=== PATIENT | male | born 1960 | race Hispanic/Latino ===

== ENCOUNTER 2020-04-09 20:52 | Inpatient (IN) | payer BC ==
[~2020-04-09] VITALS: Ht 177.8 cm; Wt 102.1 kg
[2020-04-09 21:41] LABS: BASOPHILS # (AUTO) 0.1 (0.0-0.1); BASOPHILS % 0.7 % (0.0-1.0); EOSINOPHILS # (AUTO) 0.2 (0.0-0.4); EOSINOPHILS % 2.2 % (0.0-6.0); HEMATOCRIT 43.1 % (38.2-49.6); HEMOGLOBIN 14.4 g/dL (14.0-18.0); LYMPHOCYTES % 22.1 % (18.0-39.1); MEAN CORPUSCULAR HEMOGLOBIN 29.8 pg (28-32); MEAN CORPUSCULAR HGB CONC 33.4 g/dL (31-35); MEAN CORPUSCULAR VOLUME 89.2 fL (81-99); MONOCYTES # (AUTO) 0.8 (0.2-0.8); MONOCYTES % 8.5 % (4.4-11.3); NEUTROPHILS % 66.3 % (38.7-80.0); PLATELET COUNT 187 x10e3/uL (140-360); RED BLOOD COUNT 4.83 x10e6/uL (4.3-5.7); RED CELL DISTRIBUTION WIDTH 13.6 % (11.7-14.4)
[2020-04-09 21:57] LABS: ANION GAP 13.5 mmol/L (8-16); BLOOD UREA NITROGEN 26 mg/dL (7-26); BUN/CREATININE RATIO 21 (6-25); CALCIUM 8.8 mg/dL (8.4-10.2); CARBON DIOXIDE 22 mmol/L (22-29); CHLORIDE 109 mmol/L (98-107); CREATININE, SERUM 1.21 mg/dL (0.72-1.25); EST GLOMERULAR FILTRATION RATE > 60 ML/MIN (60-); GLUCOSE 109 mg/dL (74-118); POTASSIUM 3.5 mmol/L (3.5-5.1); SODIUM 141 mmol/L (136-145)
[2020-04-09 22:04] LABS: BILIRUBIN,URINE SMALL (NEGATIVE); CLARITY,URINE CLOUDY (CLEAR); COLOR,URINE YELLOW (YELLOW); KETONES,URINE NEGATIVE (NEGATIVE); LEUKOCYTE ESTERASE ,URINE NEGATIVE (NEGATIVE); NITRITE,URINE NEGATIVE (NEGATIVE); PROTEIN,URINE DIPSTICK 1+ (NEGATIVE); URINE UROBILINOGEN 0.2 mg/dL (0.2 - 1)
[2020-04-09 22:14] LABS: BACTERIA,URINE MODERATE /HPF; RBC,URINE >50 /HPF (0-5)
[2020-04-09] MEDS ORDERED: ONDANSETRON HCL INJ 2MG/ML 2ML 2 MG/ML VIAL IV PRN (22:30)
[2020-04-09] MEDS ORDERED: HYDROMORPHONE 1MG/1ML INJ IV PRN (22:30)
[2020-04-09] MEDS: CEFTRIAXONE SOD 1 GM/NS 50 ML 50 ML IV SCH (22:50)
[2020-04-09] MEDS: SODIUM CHLORIDE 0.9% 1000ML 1,000 ML IV SCH (22:50)
[2020-04-10] VITALS (9 sets, daily range): BP systolic 140–179; BP diastolic 81–96
[2020-04-10] MEDS ORDERED: TEMAZEPAM 7.5 MG CAP PO PRN (00:15)
[2020-04-10] MEDS ORDERED: ACETAMINOPHEN 325 MG TAB PO PRN (00:15)
[2020-04-10] MEDS ORDERED: POLYETHYLENE GLYCOL 3350 17 GM PACK PO PRN (00:15)
[2020-04-10] MEDS ORDERED: HYDRALAZINE HCL 20 MG/ML VIAL IV PRN (00:15)
[2020-04-10] MEDS ORDERED: POTASSIUM CHLORIDE 20 MEQ TAB CR PO STA (01:05)
[2020-04-10 06:20] LABS: BASOPHILS % 0.6 % (0.0-1.0); EOSINOPHILS # (AUTO) 0.2 (0.0-0.4); EOSINOPHILS % 2.9 % (0.0-6.0); HEMATOCRIT 42.5 % (38.2-49.6); HEMOGLOBIN 13.7 g/dL (14.0-18.0); LYMPHOCYTES # (AUTO) 1.9 (1.0-3.2); LYMPHOCYTES % 26.6 % (18.0-39.1); MEAN CORPUSCULAR HEMOGLOBIN 29.6 pg (28-32); MEAN CORPUSCULAR HGB CONC 32.2 g/dL (31-35); MEAN CORPUSCULAR VOLUME 91.8 fL (81-99); MONOCYTES # (AUTO) 0.8 (0.2-0.8); MONOCYTES % 10.8 % (4.4-11.3); NEUTROPHILS # (AUTO) 4.2 (2.1-6.9); PLATELET COUNT 156 x10e3/uL (140-360); RED BLOOD COUNT 4.63 x10e6/uL (4.3-5.7); RED CELL DISTRIBUTION WIDTH 13.8 % (11.7-14.4)
[2020-04-10 06:47] LABS: ANION GAP 12.7 mmol/L (8-16); BLOOD UREA NITROGEN 26 mg/dL (7-26); BUN/CREATININE RATIO 23 (6-25); CALCIUM 8.2 mg/dL (8.4-10.2); CARBON DIOXIDE 21 mmol/L (22-29); CHLORIDE 113 mmol/L (98-107); CREATININE, SERUM 1.12 mg/dL (0.72-1.25); EST GLOMERULAR FILTRATION RATE > 60 ML/MIN (60-); GLUCOSE 97 mg/dL (74-118); POTASSIUM 3.7 mmol/L (3.5-5.1); SODIUM 143 mmol/L (136-145)
[2020-04-10] MEDS: SODIUM CHLORIDE 0.9% 1000ML 1,000 ML IV SCH ×3 (06:51→22:30)
[2020-04-10 07:01] LABS: CHOL/HDL RATIO 4.1 (3.9-4.7); MAGNESIUM 2.1 MG/DL (1.3-2.1); PHOSPHORUS 4.5 MG/DL (2.3-4.7)
[2020-04-10 07:23] LABS: THYROID STIMULATING HORMONE 2.283 uIU/mL (0.350-4.940)
[2020-04-10] MEDS ORDERED: IOPAMIDOL 300MG/ML 50ML INFUS..BTL IV ONE (08:11)
[2020-04-10] MEDS ORDERED: B&O 60MG R/S 60 MG SUPP PR ONE (08:11)
[2020-04-10] MEDS ORDERED: DOCUSATE SODIUM 100 MG CAP PO SCH (09:00)
[2020-04-10] MEDS: FAMOTIDINE 20 MG/2 ML VIAL IV SCH ×2 (09:00→16:13)
[2020-04-10] MEDS ORDERED: PHENAZOPYRIDINE HCL 100 MG TAB PO PRN (09:15)
[2020-04-10] MEDS ORDERED: B&O 60MG R/S 60 MG SUPP PR PRN (09:15)
[2020-04-10] MEDS: DOCUSATE SODIUM 100 MG CAP PO SCH ×3 (12:29→21:47)
[2020-04-10] MEDS: ACETAMINOPHEN/CODEINE 300MG - 30MG TAB PO PRN ×2 (12:29→21:47)
[2020-04-10] MEDS ORDERED: MIDAZOLAM HCL 2 MG/2 ML VIAL ONE (15:07)
[2020-04-10] MEDS: OXYBUTYNIN CHLORIDE 5 MG TAB PO SCH ×2 (16:13→21:47)
[2020-04-10] MEDS: POLYETHYLENE GLYCOL 3350 17 GM PACK PO SCH (16:14)
[2020-04-10] MEDS ORDERED: DEXAMETHASONE SOD PHOS INJ 4 MG/ML VIAL ONE (17:46)
[2020-04-10] MEDS ORDERED: ONDANSETRON HCL INJ 2MG/ML 2ML 2 MG/ML VIAL ONE (17:46)
[2020-04-10] MEDS ORDERED: LIDOCAINE HCL 2% LOCAL INJ 5 ML SDV VIAL INJ ONE (17:46)
[2020-04-10] MEDS ORDERED: SEVOFLURANE INHAL SOLN 250 ML PEN BTL ONE (17:46)
[2020-04-10] MEDS ORDERED: PROPOFOL IV EMULSION 10 MG/ML 20 ML VIAL ONE (17:46)
[2020-04-10] MEDS ORDERED: SIMVASTATIN 20 MG TAB PO SCH (21:00)
[2020-04-10] MEDS: CEFTRIAXONE SOD 1 GM/NS 50 ML 50 ML IV SCH (21:47)
[2020-04-11] VITALS: BP_SYST 121; BP_SYST 126; BP_DIAS 61; BP_DIAS 78
[2020-04-11 04:00] VITALS: BP 142/82
[2020-04-11] MEDS: SODIUM CHLORIDE 0.9% 1000ML 1,000 ML IV SCH (05:30)
[2020-04-11 06:19] LABS: BASOPHILS % 0.3 % (0.0-1.0); EOSINOPHILS # (AUTO) 0.1 (0.0-0.4); EOSINOPHILS % 0.6 % (0.0-6.0); HEMATOCRIT 44.2 % (38.2-49.6); HEMOGLOBIN 14.5 g/dL (14.0-18.0); LYMPHOCYTES # (AUTO) 2.1 (1.0-3.2); MEAN CORPUSCULAR HEMOGLOBIN 30.1 pg (28-32); MEAN CORPUSCULAR HGB CONC 32.8 g/dL (31-35); MEAN CORPUSCULAR VOLUME 91.9 fL (81-99); MONOCYTES % 7.4 % (4.4-11.3); NEUTROPHILS # (AUTO) 9.7 (2.1-6.9); NEUTROPHILS % 75.2 % (38.7-80.0); PLATELET COUNT 183 x10e3/uL (140-360); RED BLOOD COUNT 4.81 x10e6/uL (4.3-5.7); RED CELL DISTRIBUTION WIDTH 13.7 % (11.7-14.4)
[2020-04-11 06:43] LABS: BLOOD UREA NITROGEN 19 mg/dL (7-26); BUN/CREATININE RATIO 18 (6-25); CALCIUM 8.8 mg/dL (8.4-10.2); CARBON DIOXIDE 23 mmol/L (22-29); CHLORIDE 110 mmol/L (98-107); CREATININE, SERUM 1.05 mg/dL (0.72-1.25); EST GLOMERULAR FILTRATION RATE > 60 ML/MIN (60-); GLUCOSE 94 mg/dL (74-118); SODIUM 143 mmol/L (136-145)
[2020-04-11 07:39] VITALS: BP 129/79
[2020-04-11] MEDS: DOCUSATE SODIUM 100 MG CAP PO SCH ×2 (09:15→15:23)
[2020-04-11] MEDS: POLYETHYLENE GLYCOL 3350 17 GM PACK PO SCH (09:15)
[2020-04-11] MEDS: FAMOTIDINE 20 MG/2 ML VIAL IV SCH (09:15)
[2020-04-11] MEDS: OXYBUTYNIN CHLORIDE 5 MG TAB PO SCH ×2 (09:15→15:23)
[2020-04-11 09:16] VITALS: BP 129/79
[2020-04-11 11:44] VITALS: BP 140/84
[2020-04-11 15:43] VITALS: BP 146/79
[2020-05-10] MEDS ORDERED: OXYBUTYNIN CHLOR5 M1 PO (13:59)
[2020-05-10] MEDS ORDERED: CEFUROXIME250 MG PO (14:00)
[2020-06-05] MEDS ORDERED: TYLENOL # 31 EA PO (20:30)
== END 2020-04-11 17:15 | disposition home or self-care (01) | DRG 661 ==
LOC: ER 20:58 → ERHOLD 22:38 → MED/SURG3 04-10 00:36
PROVIDERS: ADMIT Internal Medicine; ATTEND Internal Medicine
PROC: BT141ZZ Fluoroscopy of Kidneys, Ureters and Bladder using Low Osmolar Contrast (ICD-10-PCS; 2020-04-10)
PROC: 0T788DZ Dilation of Bilateral Ureters with Intraluminal Device, Via Natural or Artificial Opening Endoscopic (ICD-10-PCS; principal; 2020-04-10 10:00)
PROC: 0TC08ZZ Extirpation of Matter from Right Kidney, Via Natural or Artificial Opening Endoscopic (ICD-10-PCS; 2020-04-10 10:00)
DX: N13.2 Hydronephrosis with renal and ureteral calculous obstruction (principal); E83.51 Hypocalcemia; D64.9 Anemia, unspecified; N39.0 Urinary tract infection, site not specified; Z11.59 Encounter for screening for other viral diseases; E78.5 Hyperlipidemia, unspecified; N17.9 Acute kidney failure, unspecified; E66.9 Obesity, unspecified; Z68.31 Body mass index [BMI] 31.0-31.9, adult
CPT/HCPCS: 36415; 50590; 74018; 80048; 80061; 81001; 83036; 83735; 83970; 84100; 84443; 84550; 85025; 87086; 99284; C1758; C1769; C2617; J0696; J1100; J1170; J2001; J2250; J2405; J7030; U0002

== ENCOUNTER → 2020-05-15 | Day surgery (SDC) | payer BC, OTHER ==
--- NOTE | 2020-05-11 19:15 | Diagnostic Imaging Report ---
EXAM: Abdomen 2 radiographs INDICATION: ^[id number] ^[id number] ^PRE OP COMPARISON: 04/09/2020 FINDINGS: Bilateral nephroureteral stents in place. Nonobstructive bowel gas pattern. No signs of pneumoperitoneum. Redemonstration of 8 mm right renal calculus. There is also suspected left inferior pole calculus, measuring approximately 5 mm. There is a 5 mm calculus closely abutting distal left ureteral stent. Left pelvic fullness is again seen. No acute osseous abnormality. Degenerative changes of lumbar spine. Clear lung bases. IMPRESSION: 1. Nonobstructive bowel gas pattern. 2. Bilateral nephroureteral stents in place. 3. Unchanged 8 mm right renal inferior pole calculus. Suspected left inferior pole 5 mm calculus. 4. 5 mm calcification abutting the distal left ureteral stent, slightly advanced when compared to prior x-ray. Signed by: Dr. Thanh Yip MD on 05/11/2020 7:12 PM
[~2020-05-15] MED LIST: B&O 60MG R/S 60 MG SUPP PR ONE; CEFTRIAXONE SOD 1 GM/NS 50 ML 50 ML IV ONE; CEFUROXIME250 MG PO; DEXAMETHASONE SOD PHOS INJ 4 MG/ML VIAL ONE; FENTANYL CITRATE/PF 100MCG/2 ML INJ ONE; GENTAMICIN 80MG/NS 100 ML 200 ML IV ONE; IOPAMIDOL 300MG/ML 50ML INFUS..BTL IV ONE; LIDOCAINE HCL 2% JELLY 5 ML TUBE ONE; LIDOCAINE HCL 2% LOCAL INJ 5 ML SDV VIAL INJ ONE; MIDAZOLAM HCL 2 MG/2 ML VIAL ONE; ONDANSETRON HCL INJ 2MG/ML 2ML 2 MG/ML VIAL ONE; OXYBUTYNIN CHLOR5 M1 PO; PROPOFOL IV EMULSION 10 MG/ML 20 ML VIAL ONE; SEVOFLURANE INHAL SOLN 250 ML PEN BTL ONE
[2020-05-15 11:35] VITALS: BP 149/83
--- NOTE | 2020-05-15 15:05 | Diagnostic Imaging Report ---
TECHNIQUE: Intraoperative image(s) IMPRESSION: Indicative equipment was utilized for a procedure performed in the operating room. No interpretation was requested. Please refer to the operative note and PACS for more details regarding the procedure and findings. Signed by: Servando Jim MD on 05/15/2020 3:02 PM
--- NOTE | 2020-05-16 12:26 | Operative Report ---
DATE OF PROCEDURE: 05/15/2020 SURGEON: Keven Lopez MD PREOPERATIVE DIAGNOSES: 1. Bilateral urolithiasis. 2. Bilateral indwelling ureteral stents. POSTOPERATIVE DIAGNOSES: 1. Right nephrolithiasis. 2. Left ureterolithiasis. 3. Left nephrolithiasis. 4. Bilateral indwelling ureteral stents. OPERATION PERFORMED: 1. Cystourethroscopy with complicated removal of bilateral indwelling ureteral stents (separately performed for the diagnosis of stent done with separate scope). 2. Right ureteroscopy with holmium laser lithotripsy and extraction of stone fragments (separately performed for the right nephrolithiasis, along with insertion of right stent (separately performed for the right nephrolithiasis). 3. Left ureteroscopy with laser lithotripsy and stent insertion (separately performed for the obstructing left ureterolithiasis). 4. Left ureteroscopy with stone manipulation and extraction (separately performed for the left nephrolithiasis). 5. Radiological services with supervision and interpretation of ureteroscopy. 6. Interpretation of retrograde ureteropyelography. No radiologist present. 7. Supervision of fluoroscopy, no radiologist present. These were all staged procedures as part of a multi-staged and multi-step process of managing the patient's urolithiasis. ANESTHESIA: General. COMPLICATIONS: None. CLINICAL SUMMARY: This patient is a 59-year-old man, who underwent right extracorporeal shockwave lithotripsy and placement of bilateral stents for bilateral urolithiasis. He is brought for the above procedures. He is aware of the risks of bleeding, infection, injury to adjacent structures, need for additional procedures and elected to proceed. OPERATIVE PROCEDURE IN DETAIL: Informed consent was verified. Markie Stovall was properly identified, taken to the operating room, placed on the cystoscopy table in supine position. Anesthesia was uneventfully begun. The patient was then carefully gently repositioned in dorsal lithotomy position with all pressure points well padded. His genitalia were prepared and draped in usual sterile fashion. The cystoscope sheath with the visual obturator in place was atraumatically inserted into the patient's urethra. It was guided unremarkable urethra through the normal sphincteric region through the prostate bed, which was significant for early BPH into the patient's bladder where we identified sand as well as stents emerging from both ureteral orifices. There were no suspicious lesions. A guidewire was then placed in the right ureter and guided to the level of the patient's kidney. The stent was then grasped completely, removed and discarded. Semi-rigid ureteroscope was then placed alongside the guidewire into the distal ureter. There were no stones there. A secondary guidewire was placed. The ureteroscope was then brought up over the secondary guidewire into the patient's kidney where we identified stones. There was a stone that was too large to manipulate. Therefore, flexible ureteroscopy sheath was atraumatically placed over the guidewire. Holmium laser lithotripsy was performed. We fragmented the stone into multiple smaller fragments. We extracted all those fragments only fine sand remained. With cystoscopic and fluoroscopic guidance, right-sided indwelling ureteral stent was then placed, it was coiled the patient's kidney as well as the patient's bladder. The retaining suture was cut short. The cystoscope was reintroduced. A guidewire was then placed into the left ureter and guided to the level of the patient's kidney. The stent was then grasped completely, removed and discarded. A semi-rigid ureteroscope was then placed alongside the guidewire into the distal ureter where we identified a stone. The stone was too large to pass and too large to manipulate without injury. Therefore, holmium laser lithotripsy was performed. We fragmented the numerous smaller stones and then we extracted all the stones into the patient's bladder. We then placed over secondary guidewire, placed a flexible ureteroscope up to the level of the patient's kidney. We identified sand within the kidney as well as Jose Juan's plaques and one stone that was large enough to grasp. We grasped that stone and extracted atraumatically and then with cystoscopic and fluoroscopic guidance, a left-sided indwelling ureteral stent was then placed to coil the patient's kidneys as well as the patient's bladder. The retaining suture was cut short as well. Interpretation of retrograde ureteropyelography contrast was instilled in retrograde fashion bilaterally. We identified a filling defect in the left ureter, identified a filling defect in the right kidney. The new stents were in good position, coiled the patient's kidneys as well as the patient's bladder at the end of the case. The patient's bladder was drained. Cystoscope was withdrawn. Belladonna and opium suppository were placed revealing a 35 g prostate, smooth, nonfluctuant without any nodules. The patient was then uneventfully reversed from anesthesia and taken to recovery room in stable condition. There were no complications to the procedure. He tolerated the procedure well. PLANS: Plans will be to return the patient to the operating room to remove the stent and perform bilateral ureteroscopy in several weeks. Once we render the patient stent free and stone free, metabolic workup will be pursued as well as follow up for the patient's BPH. Keven MD BRITNEY Lopez/LUISITO /[id number]
== END | disposition home or self-care (01) ==
LOC: OR 07:30
PROVIDERS: ATTEND Urology
DX: N13.2 Hydronephrosis with renal and ureteral calculous obstruction (principal); Z96.0 Presence of urogenital implants; N13.6 Pyonephrosis; D64.9 Anemia, unspecified; E83.51 Hypocalcemia; R31.29 Other microscopic hematuria; Z11.59 Encounter for screening for other viral diseases; Z01.810 Encounter for preprocedural cardiovascular examination; Z01.818 Encounter for other preprocedural examination
CPT/HCPCS: 52352; 52356; 74018; 74420; 88300; 93005; C1766; C1769; C2617; J0696; J1100; J1580; J2001 ×2; J2405; J2704; Q9967; U0002; J2250; J3010

== ENCOUNTER → 2020-06-10 | Day surgery (SDC) | payer BC ==
[2020-06-06 15:30] LABS: BASOPHILS # (AUTO) 0.1 (0.0-0.1); BASOPHILS % 0.7 % (0.0-1.0); EOSINOPHILS # (AUTO) 0.2 (0.0-0.4); EOSINOPHILS % 2.2 % (0.0-6.0); HEMATOCRIT 41.6 % (38.2-49.6); HEMOGLOBIN 13.8 g/dL (14.0-18.0); LYMPHOCYTES # (AUTO) 1.8 (1.0-3.2); LYMPHOCYTES % 20.9 % (18.0-39.1); MEAN CORPUSCULAR HEMOGLOBIN 30.1 pg (28-32); MEAN CORPUSCULAR HGB CONC 33.2 g/dL (31-35); MEAN CORPUSCULAR VOLUME 90.6 fL (81-99); MONOCYTES # (AUTO) 0.7 (0.2-0.8); MONOCYTES % 8.4 % (4.4-11.3); NEUTROPHILS # (AUTO) 5.7 (2.1-6.9); NEUTROPHILS % 67.7 % (38.7-80.0); PLATELET COUNT 200 x10e3/uL (140-360); RED BLOOD COUNT 4.59 x10e6/uL (4.3-5.7); RED CELL DISTRIBUTION WIDTH 13.1 % (11.7-14.4)
[2020-06-06 15:45] LABS: ANION GAP 15.1 mmol/L (8-16); BLOOD UREA NITROGEN 24 mg/dL (7-26); BUN/CREATININE RATIO 22 (6-25); CALCIUM 9.1 mg/dL (8.4-10.2); CARBON DIOXIDE 23 mmol/L (22-29); CHLORIDE 108 mmol/L (98-107); CREATININE, SERUM 1.08 mg/dL (0.72-1.25); EST GLOMERULAR FILTRATION RATE > 60 ML/MIN (60-); GLUCOSE 103 mg/dL (74-118); POTASSIUM 4.1 mmol/L (3.5-5.1); SODIUM 142 mmol/L (136-145)
[~2020-06-10] VITALS: Ht 177.8 cm; Wt 98.4 kg
[~2020-06-10] MED LIST changes: -DEXAMETHASONE SOD PHOS INJ 4 MG/ML VIAL ONE; -FENTANYL CITRATE/PF 100MCG/2 ML INJ ONE; -GENTAMICIN 80MG/NS 100 ML 200 ML IV ONE; +KETOROLAC TROMETHAMINE 30 MG/ML VIAL ONE; -LIDOCAINE HCL 2% JELLY 5 ML TUBE ONE; -LIDOCAINE HCL 2% LOCAL INJ 5 ML SDV VIAL INJ ONE; -MIDAZOLAM HCL 2 MG/2 ML VIAL ONE; -ONDANSETRON HCL INJ 2MG/ML 2ML 2 MG/ML VIAL ONE; -PROPOFOL IV EMULSION 10 MG/ML 20 ML VIAL ONE; -SEVOFLURANE INHAL SOLN 250 ML PEN BTL ONE; +TYLENOL # 31 EA PO
[2020-06-10 08:45] VITALS: BP 128/91
--- NOTE | 2020-06-10 11:27 | Operative Report ---
DATE OF PROCEDURE: 06/10/2020 SURGEON: Keven Lopez MD PREOPERATIVE DIAGNOSES: 1. Bilateral nephrolithiasis. 2. Bilateral indwelling ureteral stents. POSTOPERATIVE DIAGNOSES: 1. Bilateral nephrolithiasis. 2. Bilateral indwelling ureteral stents. OPERATION PERFORMED: 1. Cystourethroscopy with complicated removal of bilateral indwelling ureteral stents (separate procedure performed separate scope for the diagnosis of stents). 2. Bilateral ureteroscopy with stone manipulation (separate procedure performed for the bilateral nephrolithiasis done with separate scope). 3. Radiological services for supervision and interpretation of ureteroscopy, no radiologist present. 4. Interpretation of retrograde ureteropyelography. 5. Supervision of fluoroscopy, no radiologist present. ANESTHESIA: General. COMPLICATIONS: None. CLINICAL SUMMARY: Markie Stovall is a 59-year-old man with bilateral urolithiasis. He has undergone bilateral ureteral stenting. He has also undergone bilateral stone management and extraction. All the stones we removed were calcium oxalate monohydrate 100%. The patient is brought to the operating room today in hopes of rendering him stent free and stone free. He is aware of the risks of bleeding, infection, injury to adjacent structures, need for additional procedures and elected to proceed. OPERATIVE PROCEDURE IN DETAIL: Informed consent was verified, Markie Stovall was properly identified, taken to the operating room, placed on cystoscopy table in supine position, anesthesia was uneventfully begun, the patient was then carefully, gently, repositioned in the dorsal lithotomy position with all pressure points well padded. His genitalia were prepared and draped in usual sterile fashion. The cystoscope sheath with the visual obturator in place was atraumatically inserted into the patient's urethra, was guided unremarkable urethra through the normal sphincteric region, through the prostate bed, which was significant for early BPH and into the patient's bladder where there were grade 1 trabeculations. Stents were noted to be emerging from both ureteral orifices. There was small piece of sand within the bladder. A guidewire was then placed into the right ureter and the stent was then grasped completely, removed and discarded. A semi-rigid ureteroscope was then placed alongside the guidewire and guided to the level of the patient's distal ureter, which exhibited no stones, no strictures and no suspicious lesions. The flexible ureteroscope was then placed over the guidewire and guided to the level of the patient's kidney. Panendoscopy revealed no suspicious mucosal lesions and no tumors. There was one small tiny stone in the lower pole calyx. This was grasped with Nitinol tipless basket and extracted. This was a yellowish appearing stone suggestive of uric acid. We examined the ureter upon exited, it did not exhibited strictures, no stones. An identical set of procedures were performed on the left hand side with the only difference being that there were multiple small tiny pieces of sand in the lower pole calyx on the left hand side, several of these pieces were grasped with Nitinol tipless basket and extracted. We carefully examined the ureter, which exhibited no stones, no strictures. The remaining small stones should be passable. The patient bladder was drained. Cystoscope was withdrawn. Belladonna opium suppository was placed revealing a 35 g prostate, smooth, nonfluctuant without any nodules. The patient was then uneventfully reversed from anesthesia and taken to recovery room in stable condition. There were no complications of the procedure. He tolerated the procedure well. Plans will be to have the patient undergo 24-hour urine testing for metabolic stone profile and we will follow the patient up in the office for uroflowmetry and bladder ultrasonography. MD BRITNEY Garcia/LUISITO /[id number]
== END | disposition home or self-care (01) ==
LOC: OR 05:18
PROVIDERS: ATTEND Urology
DX: N20.0 Calculus of kidney (principal); Z46.6 Encounter for fitting and adjustment of urinary device; N40.0 Benign prostatic hyperplasia without lower urinary tract symptoms; N32.89 Other specified disorders of bladder; K21.9 Gastro-esophageal reflux disease without esophagitis; Z01.812 Encounter for preprocedural laboratory examination; Z20.828 Contact with and (suspected) exposure to other viral communicable diseases
CPT/HCPCS: 36415; 52330; 74420; 80048; 85025; 88300; J0696; J1885; Q9967; U0002

== ENCOUNTER 2020-10-18 21:55 | Emergency (ER) | payer BC ==
[~2020-10-18] VITALS: Ht 177.8 cm; Wt 101.6 kg
[~2020-10-18 21:55] MED LIST changes: -B&O 60MG R/S 60 MG SUPP PR ONE; -CEFTRIAXONE SOD 1 GM/NS 50 ML 50 ML IV ONE; -IOPAMIDOL 300MG/ML 50ML INFUS..BTL IV ONE; -KETOROLAC TROMETHAMINE 30 MG/ML VIAL ONE
[2020-10-18] MEDS ORDERED: TETANUS/DIPHTHERIA TOX ADULT 0.5 ML SYR IM ONE (22:15)
[2020-10-18] MEDS ORDERED: KEFLEX125 MG/5 M PO (22:57)
[2020-10-18] MEDS ORDERED: AUGMENTIN 500-1 EACH PO (23:10)
[2020-10-18] MEDS ORDERED: NEOMYCIN/POLYMYX/BACITR OINT 0.9 GM PKT ONE ×2 (23:25→23:58)
[2020-10-18] MEDS ORDERED: TETANUS/DIPHTHERIA TOX ADULT 0.5 ML SYR ONE (23:25)
[2020-10-18 23:58] VITALS: BP 163/84
== END 2020-10-18 23:58 | disposition home or self-care (01) ==
LOC: FSED 22:14
DX: S60.411A Abrasion of left index finger, initial encounter (principal); W29.3XXA Contact with powered garden and outdoor hand tools and machinery, initial encounter; Y92.008 Other place in unspecified non-institutional (private) residence as the place of occurrence of the external cause
CPT/HCPCS: 90471; 90714; 99283

== ENCOUNTER → 2020-10-30 | Day surgery (SDC) | payer BC ==
[~2020-10-30] MED LIST changes: +ALLOPURINOL300 MG PO; +ASPIRIN81 MG PO; +AUGMENTIN 500-1 EACH PO; +KEFLEX125 MG/5 M PO; +MIDAZOLAM HCL 2 MG/2 ML VIAL ONE; +PANTOPRAZOLE 40 MG 10ML VIAL ONE; +POTASSIUM CHLO10 ME1 PO; +PROTONIX20 MG PO
[2020-10-30 13:52] VITALS: BP 119/75
== END | disposition home or self-care (01) ==
LOC: OR 10:28
PROVIDERS: ATTEND Internal Medicine Gastroenterology
DX: K29.50 Unspecified chronic gastritis without bleeding (principal); K21.00 Gastro-esophageal reflux disease with esophagitis, without bleeding; K22.70 Barrett's esophagus without dysplasia; K22.8 Other specified diseases of esophagus; K44.9 Diaphragmatic hernia without obstruction or gangrene; R19.6 Halitosis; R03.0 Elevated blood-pressure reading, without diagnosis of hypertension; K21.9 Gastro-esophageal reflux disease without esophagitis; N20.0 Calculus of kidney; R00.1 Bradycardia, unspecified; Z01.812 Encounter for preprocedural laboratory examination; Z20.822 Contact with and (suspected) exposure to COVID-19; Z79.82 Long term (current) use of aspirin; Z68.32 Body mass index [BMI] 32.0-32.9, adult; Z86.16 Personal history of COVID-19
CPT/HCPCS: 43239; C9113; J2250; U0002